=== PATIENT | female | born 1935 | race Caucasian/White ===

== ENCOUNTER 2021-09-20 14:21 | Inpatient (IN) | payer MEDICARE ==
[~2021-09-20] VITALS: Ht 172.7 cm; Wt 77.1 kg
--- NOTE | 2021-09-20 14:21 | NUR ---
PT BIBRA 61 FROM HOME C/O CHEST PAIN PRESSURE LIKE STARTED 11AM. PT IS AAOX4, NOT IN RESPIRATORY DISTRESS, HOOKED TO MARBLE POLISHER, KEPT RESTED AND COMFORTABLE. WILL CONTINUE TO MONITOR.
--- NOTE | 2021-09-20 14:31 | NUR ---
LABS WERE COLLECTED AND SENT
--- NOTE | 2021-09-20 14:49 | NUR ---
MOVE SHEET SUBMITTED AND CALLED FOR TELE BED.
--- NOTE | 2021-09-20 14:56 | NUR ---
X RAY AT BEDSIDE
[2021-09-20 14:58] LABS: BASOPHILS # (AUTO) 0.1 K/uL (0.0-0.2); BASOPHILS % (AUTO) 0.8 % (0.0-2.0); EOSINOPHILS % (AUTO) 0.4 % (0.0-6.0); HEMATOCRIT 40 % (33-45); LYMPHOCYTES # (AUTO) 1.3 K/uL (0.8-4.8); LYMPHOCYTES % (AUTO) 13.1 % (20.0-44.0); MEAN CORPUSCULAR HGB CONC 33 g/dl (31.0-36.0); MEAN CORPUSCULAR VOLUME 89 fL (82-100); MONOCYTES # (AUTO) 0.5 K/uL (0.1-1.30); MONOCYTES % (AUTO) 5.4 % (2.0-12.0); NEUTROPHILS % (AUTO) 80.3 % (43.0-81.0); PLATELET COUNT (AUTO) 248 K/uL (150-450); RED BLOOD CELL COUNT(AUTO) 4.45 MIL/uL (4.0-5.2)
[2021-09-20] MEDS ORDERED: EZET10TA32 PO (15:00)
[2021-09-20] MEDS ORDERED: LEVO50TA8 PO (15:00)
[2021-09-20 15:13] LABS: D-DIMER 0.44 mg/L(FEU (0.17-0.50)
[2021-09-20 15:17] LABS: CARBON DIOXIDE 28 mmol/L (21-32); CHLORIDE 101 mmol/L (98-107); CREATININE 0.8 mg/dL (0.6-1.3); GLUCOSE 159 mg/dL (74-106); POTASSIUM 3.9 mmol/L (3.5-5.1); SODIUM SERUM 135 mmol/L (136-145); UREA NITROGEN, BLOOD 12 mg/dL (7-18)
[2021-09-20] MEDS: ENOXAPARIN SODIUM 40 MG/0.4 ML DISP.SYRIN SQ SCH (15:28)
--- NOTE | 2021-09-20 15:59 | NUR ---
[facility] CALLED CATALYST IMPREGNATOR PAGED.
[2021-09-20] MEDS ORDERED: MAG HYDROX/AL HYDROX/SIMETH 30 ML UDC PO PRN (16:30)
[2021-09-20] MEDS ORDERED: ASPIRIN 81 MG TAB.CHEW PO ONE (16:30)
[2021-09-20] MEDS ORDERED: ONDANSETRON HCL/PF 4 MG/2 ML VIAL IVP PRN (16:30)
[2021-09-20] MEDS ORDERED: MAGNESIUM HYDROXIDE 30 ML UDC PO PRN (16:30)
[2021-09-20] MEDS ORDERED: NITROGLYCERIN 0.4 MG/TAB BOTTLE MC PRN (16:30)
[2021-09-20] MEDS ORDERED: ENOXAPARIN SODIUM 40 MG/0.4 ML DISP.SYRIN SQ ONE (17:20)
[2021-09-20] MEDS ORDERED: ASPIRIN 81 MG TAB.CHEW ONE (17:20)
[2021-09-20] MEDS ORDERED: Z GUARD REMEDY 4 OZ OINT TP PRN (17:30)
--- NOTE | 2021-09-20 20:16 | NUR ---
ASSIGNED TO 304-2
--- NOTE | 2021-09-20 21:10 | NUR ---
report given to Jaqueline WRIGHT.
[2021-09-20 21:28] VITALS: BP 173/89
--- NOTE | 2021-09-20 21:34 | NUR ---
patient transfered to [facility] with acls protocol. transfered all belonings. tolerated transfer well. vvs.
[2021-09-21] VITALS: BP 170/81
--- NOTE | 2021-09-21 01:40 | NUR ---
RN OPENING NOTES PT ARRIVED VIA [facility] @2130 ABLE TO AMBULATE TO BED. AOx4, ABLE TO MAKE NEEDS KNOWN. ON RA AND TOLERATING WELL. NO SOB NOTED. NO S/SX OF RESPIRATORY DISTRESS NOTED. TELE MONITOR DETECTS SINUS RHYTHM WITH RATE OF 80s. IV ACCESS IN RAC#20. IV IS INTACT, PATENT, AND FLUSHING WELL. SAFETY PRECAUTIONS IN PLACE: BED IN LOWEST, LOCKED POSITION, SIDERAILS UPx2, AND BRAKES ON. TABLE AND CALL LIGHT WITHIN REACH. WILL CONTINUE TO MONITOR.
[2021-09-21 04:00] VITALS: BP 161/64
[2021-09-21 06:16] LABS: BASOPHILS # (AUTO) 0.1 K/uL (0.0-0.2); BASOPHILS % (AUTO) 1.1 % (0.0-2.0); EOSINOPHILS % (AUTO) 1.7 % (0.0-6.0); HEMATOCRIT 39 % (33-45); HEMOGLOBIN 13.1 g/dL (11.5-14.8); LYMPHOCYTES # (AUTO) 2.4 K/uL (0.8-4.8); LYMPHOCYTES % (AUTO) 38.1 % (20.0-44.0); MEAN CORPUSCULAR HGB CONC 33 g/dl (31.0-36.0); MEAN CORPUSCULAR VOLUME 88 fL (82-100); MONOCYTES # (AUTO) 0.8 K/uL (0.1-1.30); NEUTROPHILS # (AUTO) 2.9 K/uL (1.8-8.9); NEUTROPHILS % (AUTO) 47.1 % (43.0-81.0); PLATELET COUNT (AUTO) 255 K/uL (150-450); RED BLOOD CELL COUNT(AUTO) 4.43 MIL/uL (4.0-5.2); WHITE BLOOD COUNT (AUTO) 6.3 K/uL (4.3-11.0)
[2021-09-21 06:42] LABS: CALCIUM, SERUM 10.1 mg/dL (8.5-10.1); CREATININE 0.8 mg/dL (0.6-1.3); POTASSIUM 3.7 mmol/L (3.5-5.1)
--- NOTE | 2021-09-21 06:52 | NUR ---
RN CLOSING NOTES PT IN BED, ASLEEP. AOx4, ABLE TO MAKE NEEDS KNOWN. ON RA AND TOLERATING WELL. NO SOB NOTED. NO S/SX OF RESPIRATORY DISTRESS NOTED. TELE MONITOR DETECTS SINUS RHYTHM WITH RATE OF 80s. IV ACCESS IN RAC#20. IV IS INTACT, PATENT, AND FLUSHING WELL. ALL NEEDS MET. PT KEPT CLEAN AND DRY. SAFETY PRECAUTIONS IN PLACE: BED IN LOWEST, LOCKED POSITION, SIDERAILS UPx2, AND BRAKES ON. TABLE AND CALL LIGHT WITHIN REACH. WILL ENDORSE TO ONCOMING SHIFT FOR MOISES.
--- NOTE | 2021-09-21 07:42 | NUR ---
RN OPENING NOTES MENHADEN FISHING CREW MEMBER OPENING NOTES Pt IS RESTING IN BED. EASILY AROUSABLE. Pt IS A/O X AT THIS TIME. Pt IS ON ROOM AIR AND TOLERATING WELL. NO COMPLAINTS OF PAIN OR SIGNS OF DISTRESS NOTICED, Pt'S IV ACCESS IS ON R AC AND IS PATENT AND INTACT. SAFETY MEASURES ARE IN PLACE: BED IS LOCKED AND IN LOWEST POSITION. SIDE RAILS UP. CALL LIGHT AND BED SIDE TABLE ARE WITHIN REACH. WILL CONTINUE TO MONITOR THROUGHOUT THE SHIFT.
[2021-09-21 08:00] VITALS: BP 153/81
[2021-09-21 08:31] LABS: CHOLESTEROL 225 mg/dL (<200); HDL CHOLESTEROL 89 mg/dL (40-60); LDL 113 mg/dL (0-99); TRIGLYCERIDES 88 mg/dL (30-150)
[2021-09-21] MEDS: LEVOTHYROXINE SODIUM 50 MCG TABLET PO SCH (09:12)
[2021-09-21] MEDS: EZETIMIBE 10 MG TABLET PO SCH (09:12)
[2021-09-21] MEDS: ATORVASTATIN 10 MG TABLET PO SCH (09:12)
[2021-09-21] MEDS: ASPIRIN 81 MG TAB.CHEW PO SCH (09:13)
[2021-09-21] MEDS: METOPROLOL TARTRATE 50 MG TABLET PO SCH ×2 (09:13→20:46)
[2021-09-21 12:00] VITALS: BP 148/66
[2021-09-21] MEDS: ENOXAPARIN SODIUM 40 MG/0.4 ML DISP.SYRIN SQ SCH (15:41)
[2021-09-21] MEDS: ACETAMINOPHEN 325 MG TABLET PO PRN (15:50)
[2021-09-21 16:00] VITALS: BP 143/74
--- NOTE | 2021-09-21 18:13 | NUR ---
RN CLOSING NOTES Pt IS IN BED, AWAKE. SHE IS AOx4 AND IS ABLE TO MAKE NEEDS KNOWN. Pt IS ON ROOM AIR AND TOLERATING WELL. NO SOB NOTED AT THIS TIME. NO S/SX OF RESPIRATORY DISTRESS NOTED. NO COMPLAINTS OF PAIN MADE. IV ACCESS IS LOCATED ON L FA S/L AND IS PATENT AND INTACT AT THIS TIME, AND IS FLUSHING WELL. ALL NEEDS MET. Pt KEPT CLEAN AND DRY. SAFETY PRECAUTIONS IN PLACE: BED IS LOCKED AND IN LOWEST POSITION, SIDE RAILS UPx2, BEDSIDE TABLE AND CALL LIGHT WITHIN REACH. WILL ENDORSE TO ONCOMING SHIFT.
--- NOTE | 2021-09-21 19:35 | NUR ---
RN NOTES RECEIVED PATIENT AWAKE ON HER BED, A/OX4, AMBULATORY, DENIES PAIN. NO SOB, SR ON TELE MONITOR HR-97, NO SOB, CALL LIGHT WITHIN REACH, [id number], WILL CONTINUE TO MONITOR
[2021-09-21 20:00] VITALS: BP 130/79
[2021-09-22] VITALS: BP 145/56
[2021-09-22 04:00] VITALS: BP 153/76
--- NOTE | 2021-09-22 06:24 | NUR ---
RN NOTES AWAKE, DENIES PAIN, NO SOB, MORNING CARE RENDERED, CALL LIGHT WITHIN REACH, [id number], PT. NEEDS ATTENDED
--- NOTE | 2021-09-22 07:30 | NUR ---
FOOD HANDLER OPENING NOTES RECEIVED PATIENT ON BED AWAKE AND A/O X4. ON ROOM AIR TOLERATING WELL. NO SOB NOTED. NOT IN DISTRESS. ON TELE MONITOR CURRENTLY READING SINUS RHYTHM AT 89BPM. WITH NO COMPLAINTS OF PAIN OR DISCOMFORT AT THIS TIME. WITH IV ACCESS AT LEFT FOREARM G20 SALINE LOCKED, PATENT AND INTACT. SAFETY MEASURES IN PLACED. CALL LIGHT WITHIN REACH. BED ON LOWEST LOCKED POSITION, SIDE RAILS UP X2. WILL CONTINUE TO MONITOR.
[2021-09-22 08:22] VITALS: BP 142/69
[2021-09-22] MEDS: VALSARTAN 80 MG TABLET PO SCH (08:31)
[2021-09-22] MEDS: EZETIMIBE 10 MG TABLET PO SCH (08:32)
[2021-09-22] MEDS: ASPIRIN 81 MG TAB.CHEW PO SCH (08:32)
[2021-09-22] MEDS: ATORVASTATIN 10 MG TABLET PO SCH (08:32)
[2021-09-22] MEDS: LEVOTHYROXINE SODIUM 50 MCG TABLET PO SCH (08:32)
[2021-09-22] MEDS: METOPROLOL TARTRATE 50 MG TABLET PO SCH ×2 (08:33→21:03)
[2021-09-22 11:58] VITALS: BP 118/70
[2021-09-22] MEDS: ACETAMINOPHEN 325 MG TABLET PO PRN (14:09)
[2021-09-22] MEDS: ENOXAPARIN SODIUM 40 MG/0.4 ML DISP.SYRIN SQ SCH (15:47)
[2021-09-22 16:08] VITALS: BP 116/55
--- NOTE | 2021-09-22 18:20 | NUR ---
WINDOW DRESSER CLOSING NOTES PATIENT ON BED AWAKE AND A/O X4. ON ROOM AIR TOLERATING WELL. NO SOB NOTED. NOT IN DISTRESS. ON TELE MONITOR CURRENTLY READING SINUS RHYTHM AT 99BPM. WITH NO COMPLAINTS OF PAIN OR DISCOMFORT AT THIS TIME. WITH IV ACCESS AT LEFT FOREARM G20 SALINE LOCKED, PATENT AND INTACT. SAFETY MEASURES IN PLACED. CALL LIGHT WITHIN REACH. BED ON LOWEST LOCKED POSITION, SIDE RAILS UP X2. WILL ENDORSE TO NEXT SHIFT FOR MOISES.
--- NOTE | 2021-09-22 19:35 | NUR ---
RN NOTES RECEIVED PATIENT AWAKE, WALKING IN THE HALLWAY, A/OX4, SR ON TELE MONITOR HR-73, DENIES PAIN, NO SOB, CALL LIGHT WITHIN REACH, [id number], WILL CONTINUE TO MONITOR
[2021-09-22 20:00] VITALS: BP_SYST 134
[2021-09-23] VITALS: BP 130/77
[2021-09-23 04:00] VITALS: BP 141/74
--- NOTE | 2021-09-23 04:33 | NUR ---
RN NOTES COMPLAINED OF DYSPEPSIA- [id number] PO GIVEN ORDERED
--- NOTE | 2021-09-23 06:48 | NUR ---
RN NOTES SLEEPING BUT AROUSABLE, DENIES PAIN, NO SOB, MORNING CARE RENDERED, CALL LIGHT WITHIN REACH, [id number], PT. NEEDS ATTENDED
--- NOTE | 2021-09-23 07:14 | NUR ---
KEYBOARD OPERATOR OPENING NOTES RECEIVED PATIENT ON BED AWAKE AND A/O X4. PATIENT IS BREATHING EVENLY AND NONLABORED ON ROOM AIR TOLERATING WELL. NO SOB NOTED. NOT IN DISTRESS. ON TELE MONITOR CURRENTLY READING SINUS RHYTHM. WITH NO COMPLAINTS OF PAIN OR DISCOMFORT AT THIS TIME. PATIENT NOTED WITH IV ACCESS AT LEFT FOREARM G20 SALINE LOCKED, PATENT AND INTACT. SAFETY MEASURES IN PLACED. CALL LIGHT WITHIN REACH. BED ON LOWEST LOCKED POSITION, SIDE RAILS UP X2. WILL CONTINUE TO MONITOR.
[2021-09-23] MEDS: ATORVASTATIN 10 MG TABLET PO SCH (08:02)
[2021-09-23] MEDS: ASPIRIN 81 MG TAB.CHEW PO SCH (08:02)
[2021-09-23] MEDS: VALSARTAN 80 MG TABLET PO SCH (08:02)
[2021-09-23] MEDS: LEVOTHYROXINE SODIUM 50 MCG TABLET PO SCH (08:02)
[2021-09-23] MEDS: EZETIMIBE 10 MG TABLET PO SCH (08:02)
[2021-09-23] MEDS: METOPROLOL TARTRATE 50 MG TABLET PO SCH ×2 (08:03→22:00)
[2021-09-23 08:07] VITALS: BP 153/71
--- NOTE | 2021-09-23 08:53 | NUR ---
RN NOTE CTCA NEEDED IV ACCESS NEAR AC, IV ACCESS PLACE LAC # 20 GAUGE PATENT AND INTACT
[2021-09-23] MEDS: AMLODIPINE BESYLATE 5 MG TABLET PO SCH (09:55)
[2021-09-23] MEDS ORDERED: IV NS 0.9% 250 ML IV ONE (10:05)
[2021-09-23] MEDS ORDERED: CT SWABBABLE VALVE TRANS SET 1 EA INFUS.SET MC ONE (10:05)
[2021-09-23] MEDS ORDERED: IOHEXOL-350 100 ML VIAL IV ONE (10:05)
[2021-09-23] MEDS ORDERED: NITROGLYCERIN 0.4 MG/TAB BOTTLE ONE (10:06)
[2021-09-23] MEDS ORDERED: METOPROLOL TARTRATE INJ 5 MG/5 ML AMPUL ONE (10:06)
[2021-09-23] MEDS ORDERED: METOPROLOL TARTRATE INJ 5 MG/5 ML AMPUL IVP PRN (11:00)
[2021-09-23] MEDS ORDERED: NITROGLYCERIN 0.4 MG/TAB BOTTLE SL ONE (11:00)
[2021-09-23 12:13] VITALS: BP 133/68
[2021-09-23] MEDS: ENOXAPARIN SODIUM 40 MG/0.4 ML DISP.SYRIN SQ SCH (15:41)
[2021-09-23 15:55] VITALS: BP 122/63
--- NOTE | 2021-09-23 18:17 | NUR ---
TARE WORKER CLOSING NOTES PATIENT ON BED AWAKE AND A/O X4. PATIENT IS BREATHING EVENLY AND NONLABORED ON ROOM AIR TOLERATING WELL. NO SOB NOTED. NOT IN DISTRESS. PATIENT IS ON TELE MONITOR CURRENTLY READING SINUS RHYTHM. PATIENT HAS NO COMPLAINTS OF PAIN OR DISCOMFORT AT THIS TIME. PATIENT NOTED WITH IV ACCESS AT LEFT FOREARM G20 SALINE LOCKED, PATENT AND INTACT. ALL MEDICATIONS GIVEN ORDERED. SAFETY MEASURES IN PLACED. CALL LIGHT WITHIN REACH. BED ON LOWEST LOCKED POSITION, SIDE RAILS UP X2. WILL ENDORSE TO ONCOMING SHIFT
--- NOTE | 2021-09-23 19:15 | NUR ---
VOCATIONAL REHABILITATION CONSULTANT OPENING NOTES: RECEIVED PATIENT IN BED, AWAKE, A/O X4. NO S/S OF DISTRESS NOTED. CALL LIGHT WITHIN REACH. BED IN LOWEST AND LOCKED POSITION. WHEELCHAIR AT THE BEDSIDE. AMBULATES TO THE BATHROOM. PATIENT REFUSED THE BED ALARM ON. INSTRUCTED TO CALL FOR ASSISTANCE IF NEEDED, VERBALIZED UNDERSTANDING.
[2021-09-23 20:00] VITALS: BP 113/55
[2021-09-24] VITALS: BP 130/69
[2021-09-24 04:00] VITALS: BP 142/74
[2021-09-24 06:48] LABS: BASOPHILS % (AUTO) 0.8 % (0.0-2.0); EOSINOPHILS % (AUTO) 2.4 % (0.0-6.0); HEMATOCRIT 40 % (33-45); HEMOGLOBIN 13.4 g/dL (11.5-14.8); LYMPHOCYTES # (AUTO) 2.1 K/uL (0.8-4.8); LYMPHOCYTES % (AUTO) 39.3 % (20.0-44.0); MEAN CORPUSCULAR HGB CONC 34 g/dl (31.0-36.0); MEAN CORPUSCULAR VOLUME 88 fL (82-100); MONOCYTES # (AUTO) 0.7 K/uL (0.1-1.30); MONOCYTES % (AUTO) 12.4 % (2.0-12.0); NEUTROPHILS # (AUTO) 2.5 K/uL (1.8-8.9); NEUTROPHILS % (AUTO) 45.1 % (43.0-81.0); PLATELET COUNT (AUTO) 245 K/uL (150-450); RED BLOOD CELL COUNT(AUTO) 4.55 MIL/uL (4.0-5.2); WHITE BLOOD COUNT (AUTO) 5.5 K/uL (4.3-11.0)
[2021-09-24 07:04] LABS: CALCIUM, SERUM 9.9 mg/dL (8.5-10.1); CARBON DIOXIDE 31 mmol/L (21-32); CHLORIDE 105 mmol/L (98-107); CREATININE 0.8 mg/dL (0.6-1.3); GLUCOSE 91 mg/dL (74-106); SODIUM SERUM 139 mmol/L (136-145); UREA NITROGEN, BLOOD 18 mg/dL (7-18)
--- NOTE | 2021-09-24 07:16 | NUR ---
MARKETING AND PUBLIC RELATIONS MANAGER OPENING NOTES RECEIVED PATIENT ON BED AWAKE AND A/O X4. PATIENT IS BREATHING EVENLY AND NONLABORED ON ROOM AIR TOLERATING WELL. NO SOB NOTED. NOT IN DISTRESS. ON TELE MONITOR CURRENTLY READING SINUS RHYTHM. WITH NO COMPLAINTS OF PAIN OR DISCOMFORT AT THIS TIME. PATIENT NOTED WITH IV ACCESS AT LEFT AC #20 and R FOREARM G20 SALINE LOCKED, PATENT AND INTACT. SAFETY MEASURES IN PLACED. CALL LIGHT WITHIN REACH. BED ON LOWEST LOCKED POSITION, SIDE RAILS UP X2. WILL CONTINUE TO MONITOR.
[2021-09-24 08:00] VITALS: BP 137/66
[2021-09-24] MEDS: METOPROLOL TARTRATE 50 MG TABLET PO SCH (08:04)
[2021-09-24] MEDS: EZETIMIBE 10 MG TABLET PO SCH (08:04)
[2021-09-24] MEDS: AMLODIPINE BESYLATE 5 MG TABLET PO SCH (08:05)
[2021-09-24] MEDS: VALSARTAN 80 MG TABLET PO SCH (08:05)
[2021-09-24] MEDS: LEVOTHYROXINE SODIUM 50 MCG TABLET PO SCH (08:05)
[2021-09-24] MEDS: ASPIRIN 81 MG TAB.CHEW PO SCH (08:05)
[2021-09-24] MEDS: ATORVASTATIN 10 MG TABLET PO SCH (08:06)
[2021-09-24] MEDS ORDERED: METOPROLOL SUCCINATE 50 MG TAB.SR.24H PO SCH (09:00)
[2021-09-24 12:00] VITALS: BP 111/53
[2021-09-24] MEDS: ENOXAPARIN SODIUM 40 MG/0.4 ML DISP.SYRIN SQ SCH (15:32)
--- NOTE | 2021-09-24 15:58 | NUR ---
RN NOTE GAVE REPORT TO LAYLA @ [facility] FOR CONTINUITY OF CARE
[2021-09-24 16:00] VITALS: BP 124/67
--- NOTE | 2021-09-24 17:33 | NUR ---
TIE IN MACHINE OPERATOR NOTE RECEIVED DISCHARGE ORDER. PATIENT IS A/O X4. PATIENT IS BREATHING EVENLY AND NONLABORED ON ROOM AIR TOLERATING WELL. NO SOB NOTED. NOT IN DISTRESS. WITH NO COMPLAINTS OF PAIN OR DISCOMFORT AT THIS TIME. PATIENT WAS GIVEN DISCHARGE INSTRUCTIONS BOTH VERBALLY AND IN WRITTEN FORM. PATIENT VERBALIZED UNDERSTANDING. PATIENTS IV ACCESS WAS REMOVED AND PRESSURE DRESSING APPLIED NO BLEEDING NOTED. ALL BELONGINGS ACCOUNTED FOR BELONGINGS FORM SIGNED. GAVE REPORT TO LAYLA @ [facility]. VITALS WNL. PATIENT LEFT IN STABLE CONDITION VIA AMBULANCE 2 DIRECTOR TALENT MANAGEMENT PRESENT.
== END 2021-09-24 17:50 | DRG 303 ==
LOC: ER 14:24 → TRANSITION 17:12 → TELE 20:19
PROVIDERS: ADMIT Internal Medicine; ATTEND Nurse Practitioner Acute Care
DX: I25.10 Atherosclerotic heart disease of native coronary artery without angina pectoris (principal); E87.1 Hypo-osmolality and hyponatremia; E03.9 Hypothyroidism, unspecified; E78.5 Hyperlipidemia, unspecified; I10 Essential (primary) hypertension; Z91.048 Other nonmedicinal substance allergy status; Z79.890 Hormone replacement therapy; Z79.899 Other long term (current) drug therapy; Z86.79 Personal history of other diseases of the circulatory system; J94.9 Pleural condition, unspecified; R93.89 Abnormal findings on diagnostic imaging of other specified body structures
CPT/HCPCS: 36415; 71045-TC; 75574; 80048-TC; 80061-TC; 83880; 84439-TC; 84484-TC; 85025-TC; 85378-TC; 85730-TC; 86480; 87081-TC; 93307-TC; G0378; J1650; J3490; J7050; Q9967

== ENCOUNTER 2022-12-29 07:09 | Inpatient (IN) | payer MEDICARE ==
[~2022-12-29] VITALS: Ht 172.7 cm; Wt 76.7 kg
[~2022-12-29 07:09] MED LIST: EZET10TA32 PO; LEVO50TA8 PO
--- NOTE | 2022-12-29 07:16 | NUR ---
[id number] FROM HOME C/O SUBSTERNAL SHARP AND PRESSURE LIKE CHEST PAIN RADIATING TO THE LEFT ARM, INTERMITTENT SINCE 4AM WITH NAUSEA. 4 325MG ASPIRIN AND 0.4 SUBLINGUAL NITRO GIVEN BY EMS EN ROUTE. PT TRANSFERRED TO BED, CONNECTED TO MONITOR. SAFETY PRECAUTIONS IN PLACE.
--- NOTE | 2022-12-29 07:17 | NUR ---
AT BEDSIDE FOR EVAL
--- NOTE | 2022-12-29 07:18 | NUR ---
NILS LUGO AT BEDSIDE FOR EKG
[2022-12-29] MEDS ORDERED: MORPHINE SULFATE INJ 2 MG/ML DISP.SYRIN ONE (07:26)
[2022-12-29] MEDS ORDERED: ONDANSETRON HCL/PF 4 MG/2 ML VIAL ONE (07:26)
--- NOTE | 2022-12-29 07:28 | NUR ---
XRAY AT BEDSIDE
[2022-12-29] MEDS ORDERED: MORPHINE SULFATE INJ 2 MG/ML DISP.SYRIN IV ONE (07:30)
[2022-12-29] MEDS ORDERED: ONDANSETRON HCL/PF 4 MG/2 ML VIAL IVP ONE (07:30)
--- NOTE | 2022-12-29 07:43 | NUR ---
MOVE SHEET SUBMITTED.
--- NOTE | 2022-12-29 07:57 | NUR ---
MELCHOR COLLECTED AND SENT
[2022-12-29 07:58] LABS: BASOPHILS # (AUTO) 0.1 K/uL (0.0-0.2); BASOPHILS % (AUTO) 0.7 % (0.0-2.0); EOSINOPHILS % (AUTO) 1.1 % (0.0-6.0); HEMATOCRIT 38 % (33-45); HEMOGLOBIN 12.3 g/dL (11.5-14.8); LYMPHOCYTES # (AUTO) 2.2 K/uL (0.8-4.8); LYMPHOCYTES % (AUTO) 24.8 % (20.0-44.0); MEAN CORPUSCULAR HGB CONC 32 g/dl (31.0-36.0); MEAN CORPUSCULAR VOLUME 90 fL (82-100); MONOCYTES # (AUTO) 0.8 K/uL (0.1-1.30); MONOCYTES % (AUTO) 9.4 % (2.0-12.0); NEUTROPHILS # (AUTO) 5.7 K/uL (1.8-8.9); PLATELET COUNT (AUTO) 244 K/uL (150-450); RED BLOOD CELL COUNT(AUTO) 4.24 MIL/uL (4.0-5.2); WHITE BLOOD COUNT (AUTO) 8.9 K/uL (4.3-11.0)
[2022-12-29 08:15] LABS: CALCIUM, SERUM 10.4 mg/dL (8.5-10.1); CARBON DIOXIDE 26 mmol/L (21-32); CHLORIDE 104 mmol/L (98-107); CREATININE 0.8 mg/dL (0.6-1.3); GLUCOSE 100 mg/dL (74-106); POTASSIUM 3.9 mmol/L (3.5-5.1); SODIUM SERUM 139 mmol/L (136-145); UREA NITROGEN, BLOOD 14 mg/dL (7-18)
[2022-12-29 08:20] LABS: ALANINE AMINOTRANSFERASE 22 U/L (12-78); ALBUMIN 3.6 g/dL (3.4-5.0); ALKALINE PHOSPHATASE 101 U/L (46-116); ASPARTATE AMINOTRANSFERASE 23 U/L (15-37); BILIRUBIN,DIRECT 0.2 mg/dL (0.0-0.2); BILIRUBIN,TOTAL 0.5 mg/dL (0.2-1.0); TOTAL PROTEIN, SERUM 6.4 g/dL (6.4-8.2)
[2022-12-29] MEDS ORDERED: CT SWABBABLE VALVE TRANS SET 1 EA INFUS.SET MC ONE (08:56)
[2022-12-29] MEDS ORDERED: IOHEXOL-300 100 ML VIAL IV ONE (08:56)
[2022-12-29] MEDS ORDERED: IV NS 0.9% 250 ML IV ONE (08:56)
--- NOTE | 2022-12-29 08:56 | NUR ---
PT TAKEN TO CT VIA C[facility]
[2022-12-29] MEDS ORDERED: ZOLPIDEM TARTRATE 5 MG TABLET PO PRN (11:00)
[2022-12-29] MEDS ORDERED: NITROGLYCERIN 0.4 MG/TAB BOTTLE SL ONE (11:00)
[2022-12-29] MEDS ORDERED: HYDROCODONE/APAP 5/325MG TABLET PO PRN (11:00)
[2022-12-29] MEDS ORDERED: ACETAMINOPHEN 325 MG TABLET PO PRN (11:00)
[2022-12-29] MEDS ORDERED: MORPHINE SULFATE INJ 2 MG/ML DISP.SYRIN IV PRN (11:00)
[2022-12-29] MEDS ORDERED: Z GUARD REMEDY 4 OZ OINT TP PRN (11:00)
[2022-12-29] MEDS ORDERED: MAGNESIUM HYDROXIDE 30 ML UDC PO PRN (11:00)
[2022-12-29] MEDS ORDERED: MAG HYDROX/AL HYDROX/SIMETH 30 ML UDC PO PRN (11:00)
[2022-12-29] MEDS ORDERED: ONDANSETRON HCL/PF 4 MG/2 ML VIAL IVP PRN (11:00)
--- NOTE | 2022-12-29 11:10 | NUR ---
ULTRASOUND AT BEDSIDE
--- NOTE | 2022-12-29 11:42 | NUR ---
REPORT GIVEN TO RAY FOR MOISES
--- NOTE | 2022-12-29 12:22 | NUR ---
PT TASNPORTED TO TELE FLOOR WITH ACLS PROTOCOLS IN PLACE.
[2022-12-29] MEDS: ENOXAPARIN SODIUM 40 MG/0.4 ML DISP.SYRIN SQ SCH (12:52)
--- NOTE | 2022-12-29 13:30 | NUR ---
YARN PREPARATION SUPERVISOR ADMITTING NOTES ADMITTED AN 87 Y/O, FEMALE TO UNIT AT 1230 [place]IA [place] WITH ADMITTING DX OF CHEST PAIN, POSSIBLE ACS. PT IS A/O X4, ABLE TO MAKE NEEDS KNOWN. ORIENTED TO STAFF AND UNIT. V/S TAKEN, STABLE AND RECORDED. PT ON 02 VIA N/C AT 2LPM AT THIS TIME, TOLERATING WELL WITH NO SOB NOTED, BREATHING EVEN AND UNLABORED. ASSESSMENT DONE: SKIN IS INTACT, IV ACCESS NOTED ON LAC G#20 INTACT, PATENT AND FLUSHES WELL. LUNGS CLEAR ON AUSCULTATION. ABDOMEN SOFT, NON-TENDER AND NON-DISSENTED WITH POSITIVE BOWEL SOUNDS PRESENT. ABLE TO MOVE ALL EXTREMITIES W/O DIFFICULTLY. PT PLACED ON EXTERNAL ONBOARDING SPECIALIST WITH READING OF NSR, HR 68 NOTED, NO C/O CARDIAC DISTRESS VOICED AT THIS TIME. PT MAINTAINED ON NPO PER MD ORDER. SAFETY MEASURES IMPLEMENTED: BED PLACED IN LOWEST LOCKED POSITION WITH SR -UP X2, CALL LIGHT W/I EASY REACH. WILL CONTINUE TO MONITOR PT.
[2022-12-29 16:00] VITALS: BP 150/68
--- NOTE | 2022-12-29 18:45 | NUR ---
SCHOOL LUNCH MONITOR CLOSING NOTES PATIENT IN BED AWAKE AND RESTING @ [place]AE HIGH BACKREST POSITION. A/O X 4, ABLE TO MAKE NEEDS KNOWN. PT MAINTAINED ON NPO PER MD ORDER. ON 02 VIA N/C AT 2LPM AT THIS TIME, TOLERATING WELL WITH NO SOB NOTED, BREATHING EVEN AND UNLABORED. ON EXTERNAL WEB ENGINEER WITH CURRENT OF READING OF NSR, HR 82 , NO C/O CARDIAC DISTRESS VOICED. ALL NEEDS AND CARE ATTENDED WELL. SAFETY MEASURES KEPT IN PLACE: BED IN LOWEST LOCKED POSITION WITH SR -UP X2, CALL LIGHT W/I EASY REACH. WILL ENDORSE MOISES TO ARMHOLE BASTER JUMPBASTING NURSE.
[2022-12-29 20:00] VITALS: BP 149/75
--- NOTE | 2022-12-29 20:34 | NUR ---
snow rn opening Received patient in bed, a/ox4, LAC VIEUX. no s/s of apparent distress on 2lpm of o2 via nc. patient report lingering pain on her diaphragm area but non-radiating. reading ST 108 BPM at this time. LAC #20g on saline lock at this time. Patient made aware of NPO status and will be made aware of the changes in the future. safety in place-- bed in lowest, locked position, call light within reach, Bed rails upX2, bed alarm in place, patient has FWW at bed side. will continue with plan of care for patient.
--- NOTE | 2022-12-29 22:23 | NUR ---
noc rn note Hospitalist Juan Thomas consulted regarding patient's NPO status and if he wants to order fluid. Aware of CT abd/pelvis result and lab results, hospitalist ordered Cardiac Diet and NO IV fluid. order carried out.
[2022-12-30] VITALS: BP 151/64
[2022-12-30 04:00] VITALS: BP 153/68
--- NOTE | 2022-12-30 04:45 | NUR ---
noc rn note patient c/o headache. Given Tylenol 650mg as ordered PRN and encouraged to eat something. Given snacks and currently eating at this time. will monitor.
[2022-12-30 07:02] LABS: BASOPHILS # (AUTO) 0.1 K/uL (0.0-0.2); EOSINOPHILS % (AUTO) 1.2 % (0.0-6.0); HEMATOCRIT 36 % (33-45); LYMPHOCYTES # (AUTO) 1.4 K/uL (0.8-4.8); LYMPHOCYTES % (AUTO) 27.7 % (20.0-44.0); MEAN CORPUSCULAR HGB CONC 33 g/dl (31.0-36.0); MEAN CORPUSCULAR VOLUME 88 fL (82-100); MONOCYTES # (AUTO) 0.6 K/uL (0.1-1.30); MONOCYTES % (AUTO) 12.1 % (2.0-12.0); PLATELET COUNT (AUTO) 218 K/uL (150-450); RED BLOOD CELL COUNT(AUTO) 4.14 MIL/uL (4.0-5.2); WHITE BLOOD COUNT (AUTO) 5.2 K/uL (4.3-11.0)
[2022-12-30 07:29] LABS: ALANINE AMINOTRANSFERASE 23 U/L (12-78); ALBUMIN 3.3 g/dL (3.4-5.0); ALKALINE PHOSPHATASE 76 U/L (46-116); ASPARTATE AMINOTRANSFERASE 20 U/L (15-37); BILIRUBIN,DIRECT 0.1 mg/dL (0.0-0.2); BILIRUBIN,TOTAL 0.5 mg/dL (0.2-1.0); CALCIUM, SERUM 9.9 mg/dL (8.5-10.1); CARBON DIOXIDE 29 mmol/L (21-32); CHLORIDE 105 mmol/L (98-107); CREATININE 0.8 mg/dL (0.6-1.3); GLUCOSE 114 mg/dL (74-106); MAGNESIUM 2.1 mg/dL (1.8-2.4); PHOSPHORUS 2.7 mg/dL (2.5-4.9); POTASSIUM 3.6 mmol/L (3.5-5.1); SODIUM SERUM 138 mmol/L (136-145); TOTAL PROTEIN, SERUM 5.9 g/dL (6.4-8.2); UREA NITROGEN, BLOOD 10 mg/dL (7-18)
--- NOTE | 2022-12-30 07:30 | NUR ---
DRY CHAIN OPERATOR NOTES PT IN BED, AWAKE, ALERT AND ORIENTED, NO COMPLAINT OF PAIN OR ANY DISCOMFORT, RESPIRATIONS NORMAL, CALL LIGHT WITHIN REACH, NEEDS ATTENDED.
[2022-12-30 07:40] LABS: CHOLESTEROL 172 mg/dL (<200); HDL CHOLESTEROL 74 mg/dL (40-60); THYROID STIMULATING HORMONE 2.213 uIU/mL (0.358-3.74); TRIGLYCERIDES 85 mg/dL (30-150)
--- NOTE | 2022-12-30 07:54 | NUR ---
NOC RN CLOSING REPORT GIVEN TO ADRIANA BLAIR FOR CONTINUITY OF PATIENT CARE. NEEDS ATTENDED.
[2022-12-30 07:56] LABS: LDL 90 mg/dL (0-99)
[2022-12-30 08:00] VITALS: BP 133/69
[2022-12-30] MEDS: ASPIRIN 81 MG TAB.CHEW PO SCH (08:56)
[2022-12-30] MEDS: LEVOTHYROXINE SODIUM 75 MCG TABLET PO SCH (08:57)
[2022-12-30] MEDS ORDERED: PANTOPRAZOLE 40 MG VIAL IV SCH (09:00)
[2022-12-30] MEDS ORDERED: MULT-447 PO (11:15)
[2022-12-30] MEDS ORDERED: ASPI-1420 PO (11:15)
[2022-12-30] MEDS ORDERED: POLY15DR40 EACHEYE (11:15)
[2022-12-30] MEDS: ENOXAPARIN SODIUM 40 MG/0.4 ML DISP.SYRIN SQ SCH (13:00)
[2022-12-30 15:49] VITALS: BP 133/71
--- NOTE | 2022-12-30 18:58 | NUR ---
AIRCRAFT REFUELER NOTES PT IN BED, AWAKE, ALERT AND ORIENTED, NO COMPLAINT OF PAIN, NOT IN DISTRESS, CALL LIGHT WITHIN REACH, TOLERATES CURRENT DIET, COMPLETED MRCP TODAY, RESULTS PENDING, ALL NEEDS ATTENDED.
--- NOTE | 2022-12-30 19:25 | NUR ---
CHIEF WHEELAGE CLERK OPENING NOTES - RECEIVED PATIENT STANDING ON BEDSIDE. A/O X4. BREATHING EVEN AND NON-LABORED ON ROOM AIR. NOT IN ACUTE DISTRESS. DENIES PAIN AT THIS TIME, VERBALIZED HER MID-LOWER CHEST PAIN COMES AND GOES. ON TELE MONITOR READING SINUS TACHYCARDIA WITH OCCASIONAL PVC AT 112 BPM. HAS LEFT ANTECUBITAL IV ACCESS #20G AND SALINE LOCKED. NO S/S OF INFILTRATION NOTED. SAFETY PRECAUTIONS IN PLACE: BED LOCKED AND IN LOW POSITION, SIDE RAILS UP X2, CALL LIGHT WITHIN REACH. WILL CONTINUE PLAN OF CARE.
[2022-12-30 20:00] VITALS: BP_SYST 125; BP_SYST 149; BP_DIAS 64; BP_DIAS 86
--- NOTE | 2022-12-30 20:27 | NUR ---
PER HOSPITALIST PATRICIA, THIS IS NOT HIS PATIENT AND INFORM AM HOSPITALIST TO DO MED RECON.
[2022-12-31] VITALS: BP 123/66
[2022-12-31 04:00] VITALS: BP 128/63
[2022-12-31 06:49] LABS: BASOPHILS % (AUTO) 0.5 % (0.0-2.0); EOSINOPHILS % (AUTO) 1.5 % (0.0-6.0); HEMATOCRIT 39 % (33-45); HEMOGLOBIN 12.7 g/dL (11.5-14.8); LYMPHOCYTES # (AUTO) 1.8 K/uL (0.8-4.8); MEAN CORPUSCULAR HGB CONC 33 g/dl (31.0-36.0); MEAN CORPUSCULAR VOLUME 88 fL (82-100); MONOCYTES # (AUTO) 0.7 K/uL (0.1-1.30); MONOCYTES % (AUTO) 13.1 % (2.0-12.0); NEUTROPHILS # (AUTO) 2.8 K/uL (1.8-8.9); NEUTROPHILS % (AUTO) 50.9 % (43.0-81.0); PLATELET COUNT (AUTO) 236 K/uL (150-450); RED BLOOD CELL COUNT(AUTO) 4.41 MIL/uL (4.0-5.2); WHITE BLOOD COUNT (AUTO) 5.4 K/uL (4.3-11.0)
[2022-12-31 07:00] VITALS: BP 158/81
--- NOTE | 2022-12-31 07:26 | NUR ---
INFORMATION SECURITY SPECIALIST CLOSING NOTES - PATIENT SLEEPING, EASY TO AROUSE. ABLE TO VERBALIZE NEEDS. NO CARDIAC OR RESPIRATORY DISTRESS THROUGHOUT THE NIGHT. SATURATING AT 96% ON ROOM AIR. NO C/O PAIN OR DISCOMFORT AT THIS TIME. AFEBRILE. ON TELE MONITOR READING SINUS RHYTHM WITH OCCASIONAL PVC AND PAC AT 78 BPM. LEFT ANTECUBITAL IV ACCESS INTACT, PATENT AND FLUSHING. ALL DUE MEDS GIVEN AND NEEDS ATTENDED. MINIMAL ASSISTANCE ON ADLS. ENCOURAGED TO USE BEDSIDE COMMODE, PATIENT BECOMES TACHYCARDIC WHEN WALKING TO THE BATHROOM. SAFETY PRECAUTIONS MAINTAINED. WILL ENDORSE TO NEXT SHIFT FOR MOISES.
[2022-12-31 07:27] LABS: ALANINE AMINOTRANSFERASE 21 U/L (12-78); ALBUMIN 3.3 g/dL (3.4-5.0); ALKALINE PHOSPHATASE 75 U/L (46-116); ASPARTATE AMINOTRANSFERASE 20 U/L (15-37); BILIRUBIN,DIRECT 0.1 mg/dL (0.0-0.2); BILIRUBIN,TOTAL 0.5 mg/dL (0.2-1.0); CALCIUM, SERUM 9.8 mg/dL (8.5-10.1); CARBON DIOXIDE 28 mmol/L (21-32); CHLORIDE 105 mmol/L (98-107); CREATININE 0.7 mg/dL (0.6-1.3); GLUCOSE 91 mg/dL (74-106); MAGNESIUM 2.1 mg/dL (1.8-2.4); PHOSPHORUS 2.9 mg/dL (2.5-4.9); POTASSIUM 3.8 mmol/L (3.5-5.1); SODIUM SERUM 138 mmol/L (136-145); UREA NITROGEN, BLOOD 12 mg/dL (7-18)
--- NOTE | 2022-12-31 07:30 | NUR ---
GORE CUTTER NOTES PT IN BED, AWAKE, ALERT AND ORIENTED, NO COMPLAINT OF PAIN AT THIS TIME, BREATHING PATTERN NORMAL, CALL LIGHT WITHIN REACH.
[2022-12-31] MEDS: ASPIRIN 81 MG TAB.CHEW PO SCH (08:23)
[2022-12-31] MEDS: LEVOTHYROXINE SODIUM 75 MCG TABLET PO SCH (08:23)
[2022-12-31] MEDS: PANTOPRAZOLE 40 MG TABLET.DR PO SCH (08:24)
--- NOTE | 2022-12-31 10:52 | NUR ---
DISPLAY DECORATOR NOTES PT SEEN AND EXAMINED BY DR. RÍOS, PLAN OF CARE DISCUSSED WITH PT, VERBALIZED UNDERSTANDING.
[2022-12-31] MEDS: ENOXAPARIN SODIUM 40 MG/0.4 ML DISP.SYRIN SQ SCH (11:07)
[2022-12-31 12:00] VITALS: BP 138/68
[2022-12-31 16:00] VITALS: BP 127/68
--- NOTE | 2022-12-31 19:17 | NUR ---
BEEF FARMER NOTES PT AWAKE, ALERT AND ORIENTED, NO COMPLAINT OF PAIN, NOT IN DISTRTESS, AMBULATES ALONG THE HALLWAY WITH A WALKER, SEEN BY DR. RÍOS TODAY, PT AWARE OF PLAN OF CARE, SAFETY PRECAUTIONS OBSERVED.
[2022-12-31 20:00] VITALS: BP 121/65
--- NOTE | 2022-12-31 20:01 | NUR ---
CASE TECHNICIAN OPENING NOTES - RECEIVED PATIENT SITTING IN BED. A/O X4. BREATHING EVEN AND NON-LABORED ON ROOM AIR. NOT IN APPARENT DISTRESS. DENIES PAIN AT THIS TIME. VERBALIZED SHE EASILY GETS TIRED WHEN WALKING. ON TELE MONITOR READING SINUS TACHYCARDIA WITH OCCASIONAL PVC AND PAC AT 109 BPM. HAS LEFT ANTECUBITAL IV ACCESS #20G AND SALINE LOCKED. NO S/S OF INFILTRATION NOTED. FWW BY BEDSIDE. SAFETY PRECAUTIONS IN PLACE: BED LOCKED AND IN LOW POSITION, SIDE RAILS UP X2, CALL LIGHT WITHIN REACH. WILL CONTINUE PLAN OF CARE.
[2023-01-01] VITALS: BP 163/74
[2023-01-01 01:22] VITALS: BP 140/71
[2023-01-01 04:00] VITALS: BP 141/78
[2023-01-01 05:00] VITALS: BP 141/78
--- NOTE | 2023-01-01 06:56 | NUR ---
STAVE LOG CUT OFF SAW OPERATOR CLOSING NOTES - PATIENT RESTING, HOB IN HIGH SORIA'S. ABLE TO VERBALIZE NEEDS. NO SOB OR NOTED. SATURATING AT 97% IN ROOM AIR. AFEBRILE. VERBALIZED SHE STARTED COUGHING AGAIN AND HAS MILD LEFT BREAST PAIN THAT COMES AND GOES. ON TELE MONITOR READING SINUS RHYTHM WITH OCCASIONAL PVC AND PAC AT 70 BPM. LEFT ANTECUBITAL IV ACCESS FLUSHING WELL. ALL NEEDS ATTENDED AND ANTICIPATED. SAFETY PRECAUTIONS MAINTAINED. WILL ENDORSE TO NEXT SHIFT FOR MOISES.
--- NOTE | 2023-01-01 07:12 | NUR ---
CONTROLLER REPAIRER AND TESTER OPENING NOTE: RECEIVED PT IN BED. AOX4. ABLE TO MAKE NEEDS KNOWN. HOB KEPT ELEVATED. NO RESP DISTRESS NOTED. SKIN WARM AND DRY TO TOUCH. DENIES PAIN OR DISCOMFORT. L AC 20G. PATENT AND INTACT. NO INFILTRATION NOTED. CALL LIGHT WITHIN REACH.
[2023-01-01 07:41] LABS: BASOPHILS % (AUTO) 0.8 % (0.0-2.0); EOSINOPHILS % (AUTO) 1.5 % (0.0-6.0); HEMATOCRIT 39 % (33-45); HEMOGLOBIN 12.9 g/dL (11.5-14.8); LYMPHOCYTES # (AUTO) 1.9 K/uL (0.8-4.8); LYMPHOCYTES % (AUTO) 36.9 % (20.0-44.0); MEAN CORPUSCULAR HGB CONC 33 g/dl (31.0-36.0); MEAN CORPUSCULAR VOLUME 88 fL (82-100); MONOCYTES # (AUTO) 0.7 K/uL (0.1-1.30); MONOCYTES % (AUTO) 13.3 % (2.0-12.0); NEUTROPHILS # (AUTO) 2.5 K/uL (1.8-8.9); NEUTROPHILS % (AUTO) 47.5 % (43.0-81.0); PLATELET COUNT (AUTO) 260 K/uL (150-450); RED BLOOD CELL COUNT(AUTO) 4.43 MIL/uL (4.0-5.2); WHITE BLOOD COUNT (AUTO) 5.3 K/uL (4.3-11.0)
[2023-01-01 08:12] LABS: ALBUMIN 3.6 g/dL (3.4-5.0); BILIRUBIN,DIRECT 0.1 mg/dL (0.0-0.2); BILIRUBIN,TOTAL 0.4 mg/dL (0.2-1.0); CREATININE 0.7 mg/dL (0.6-1.3); MAGNESIUM 2.3 mg/dL (1.8-2.4); PHOSPHORUS 3.1 mg/dL (2.5-4.9); POTASSIUM 3.8 mmol/L (3.5-5.1); TOTAL PROTEIN, SERUM 6.4 g/dL (6.4-8.2)
[2023-01-01 08:25] VITALS: BP 150/75
[2023-01-01] MEDS: ASPIRIN 81 MG TAB.CHEW PO SCH (08:41)
[2023-01-01] MEDS: PANTOPRAZOLE 40 MG TABLET.DR PO SCH (08:42)
[2023-01-01] MEDS: LEVOTHYROXINE SODIUM 75 MCG TABLET PO SCH (08:46)
[2023-01-01 11:55] VITALS: BP 130/71
[2023-01-01] MEDS: ENOXAPARIN SODIUM 40 MG/0.4 ML DISP.SYRIN SQ SCH (12:16)
--- NOTE | 2023-01-01 17:55 | NUR ---
ONLINE RETAILER NOTE: RECEIVED ORDER FROM MD FOR D/C TO HOME. PT IS AOX4. ABLE TO MAKE NEED KNOWN IN STABLE CONDITION. ON ROOM AIR. NO RESPIRATORY DISTRESS NOTED. D/C INSTRUCTION GIVN TO PT.VERBALIZE UNDERSTANDING. ALL BELONGINGS ACCOUNTED AND SHEET SIGNED. HOME MED TO BE PICKED UP AT THE PHARMACY. IV ACCESS REMOVED. CATHERED TIP INTACT. PRESSURE DRESSING APPLIED. EXIT CARE FOLDER GIVEN TO PT. PT LEFT IN STABLE CONDITION. PICKED UP BY TRANSPORTATION VIA GURNEY.
== END 2023-01-01 17:55 | disposition home or self-care (01) | DRG 446 ==
LOC: ER 07:13 → TELE 11:29
PROVIDERS: ADMIT Nurse Practitioner Acute Care; ATTEND Nurse Practitioner Acute Care
DX: K80.20 Calculus of gallbladder without cholecystitis without obstruction (principal); I10 Essential (primary) hypertension; E78.5 Hyperlipidemia, unspecified; E03.9 Hypothyroidism, unspecified; J47.9 Bronchiectasis, uncomplicated; K82.8 Other specified diseases of gallbladder; Z79.82 Long term (current) use of aspirin; Z91.048 Other nonmedicinal substance allergy status; Z79.899 Other long term (current) drug therapy; R91.1 Solitary pulmonary nodule
CPT/HCPCS: 36415; 71045-TC; 71260-TC; 74181-TC; 76700-TC; 80048-TC; 80061-TC; 80076-TC; 83690-TC; 83735-TC; 84100-TC; 84439-TC; 84443-TC; 84481; 84484-TC; 85025-TC; 86480; 87081-TC; 93307-TC; C9113; C9803; G0378; J1650; J2270; J2405; J7050; Q9967